=== PATIENT | female | born 1945 | race Caucasian/White ===

== ENCOUNTER → 2016-08-01 | Outpatient (CLI) | payer MEDICARE, OTHER ==
[~2016-08-01] MED LIST: ASPI-535 PO; DICY10CA60 PO; HYD25 PO; LEVO75TA5 PO; LISI10TA2 PO; OMEP40CA6 PO
--- NOTE | 2016-08-01 13:53 | RADRPT ---
PROCEDURE: Ultrasound of the left lower extremity venous system. CLINICAL INDICATION: Left leg pain and swelling, deep venous thrombosis TECHNIQUE: Pringle scale with and without compression, color doppler, spectral doppler of the venous system of the left lower extremity was performed. Venous augmentation maneuvers were utilized. COMPARISON: No prior studies are available for comparison. FINDINGS: Common femoral vein: Patent. Femoral vein: Patent. Popliteal vein: Patent. Calf veins: Patent. No soft tissue abnormalities are identified. IMPRESSION: No evidence of a deep vein thrombosis within the left lower extremity. RPTAT: AADD .Gino Medley MD, MD Date Time Electronically viewed and signed by .Gino Medley MD, on 08/01/2016 13:53 .B/
== END | disposition home or self-care (01) ==
LOC: VAS 11:54
PROVIDERS: ATTEND Specialist
DX: M79.652 Pain in left thigh (principal)
CPT/HCPCS: 93971